=== PATIENT | male | born 1950 | race Caucasian/White ===

== ENCOUNTER 2016-11-22 07:55 | Emergency (ER) | payer MEDICARE, OTHER ==
--- NOTE | 2016-11-22 08:04 | ED Physician Documentation ---
PD HPI MALE - Stated complaint Stated Complaint: MALE - Chief complaint Chief Complaint: UTI - History obtained from History obtained from: Patient - History of Present Illness Timing - onset: How many days ago (2) Timing - duration: Days (2) Timing - details: Gradual onset, Still present Associated symptoms: Dysuria, Urinary frequency. No: Hematuria, Discharge, Genital sore / lesion Similar symptoms before: Diagnosis (prostatitis many years ago, no recent problems) Recently seen: Not recently seen Review of Systems Constitutional: denies: Fever, Chills GI: denies: Nausea, Vomiting Skin: denies: Rash, Lesions Musculoskeletal: reports: Back pain (occasional ongoing, but no new recent flank pain per se.) PD PAST MEDICAL HISTORY - Past Medical History Cardiovascular: None : Benign prostate hypertrophy - Present Medications Home Medications: Ambulatory Orders Medication Instructions Recorded Confirmed Sulfamethox/Trimeth 800/160 1 each PO BID #14 tablet 11/22/16 [Bactrim Ds 800/160] - Allergies Allergies/Adverse Reactions: Allergies Allergy/AdvReac Type Severity Reaction Status Date / Time No Known Drug Allergies Allergy Verified 11/22/16 08:01 PD ED PE NORMAL - Vitals Vital signs reviewed: Yes - General General: Alert and oriented X 3, No acute distress, Well developed/nourished - Abdomen Abdomen: Soft, Non tender - Back Back: No CVA TTP - Derm Derm: Normal color, Warm and dry Results - Vitals Vitals: Vital Signs - 24 hr 11/22/16 07:57 Temperature 35 C L Heart Rate 59 L Respiratory 14 Rate Blood Pressure 148/89 H O2 Saturation 100 Oxygen O2 Source Room air - Labs Labs: Laboratory Tests 11/22/16 08:10 Urine Color ORANGE Urine Clarity CLEAR Urine pH 5.0 Ur Specific [place] 1.015 Urine Protein 30 H Urine Glucose (UA) 100 H Urine Ketones NEGATIVE Urine Occult Blood NEGATIVE Urine Nitrite POSITIVE H Urine Bilirubin SMALL H Urine Urobilinogen 4 H Ur Leukocyte Esterase NEGATIVE Ur Microscopic Review INDICATED Urine Culture Comments Not Reportable PD MEDICAL DECISION MAKING - ED course Complexity details: reviewed results, considered differential, d/w patient Departure - Departure Disposition: 01 Home, Self Care Clinical Impression: UTI (urinary tract infection) Qualifiers: Urinary tract infection type: acute cystitis Hematuria presence: without hematuria Qualified Code(s): N30.00 - Acute cystitis without hematuria Condition: Stable Record reviewed to determine appropriate education?: Yes Instructions: ED UTI Cystitis Male Prescriptions: Sulfamethox/Trimeth 800/160 [Bactrim Ds 800/160] 1 each PO BID #14 tablet Comments: Continue the phenazopyridine as needed for discomfort. Tylenol or ibuprofen as needed for pain as well. Drink adequate fluids. Bactrim twice daily for 7 days for the urinary tract infection. Recheck with your primary care if not improved over the next couple of days. Return if fevers, kidney pain, vomiting , other concerns.
[2016-11-22 08:05] VITALS: BP 148/89
[2016-11-22 08:21] LABS: UA w/ MICROSCOPIC CHARGE YES
[2016-11-22 08:22] LABS: BILIRUBIN,URINE SMALL (NEGATIVE)
[2016-11-22] MEDS ORDERED: SULFAMETH/TRIMETH DS 800/160 MG TABLET PO STA (08:27)
[2016-11-22 08:28] LABS: UR CULTURE IF IND INDICATED; WBC,URINE 0-3 /HPF (0-3)
[2016-11-22] MEDS ORDERED: SULFAMETH/TRIMETH DS 800/160 MG TABLET PO ONE (08:38)
== END 2016-11-22 08:35 | disposition home or self-care (01) ==
LOC: ED 07:55
DX: N30.00 Acute cystitis without hematuria (principal)
CPT/HCPCS: 81001; 87086; 99283; A9270; 81003